=== PATIENT | male | born 1980 | race Caucasian/White ===

== ENCOUNTER 2017-02-04 19:37 | Emergency (ER) | payer OTHER ==
--- NOTE | ~2017-02-04 | CR127 ---
[facility] A Service of [facility] & [facility] RADIOLOGY TEXT RESULTS PATIENT: COLLEEN DOUGLASS LOCATION: SED : 78 UNIT #: [id number] AGE: [address]: MAUREEN BANUELOS SEX: M ORDER DR: [id number] [place] [id number] E MR#: [id number] Acc #: [id number] NAME: COLLEEN DOUGLASS : 1980 SEX: M STUDY DATE/TIME: 02/04/2017 20:22 UNIT: SED ROOM: STUDY DESCRIPTION: CR Foot Complete Min 3 View Rt Attending Physician: Maureen Banuelos Aprn Ordering Physician: Maureen Banuelos Aprn Primary Care Physician: No Primary Care Physician MEDICAL IMAGING REPORT This report is preliminary unless electronic signature is present. EXAM Right foot 02/04/2017 HISTORY Right foot pain beginning this morning. No known injury. COMPARISON STUDIES None. FINDINGS 3 views right foot demonstrates no acute fracture or dislocation. No joint effusion. Soft tissues are unremarkable. IMPRESSION Unremarkable right foot Dictated by... Nguyễn Garner M.D. THIS IS AN ELECTRONICALLY VERIFIED REPORT Nguyễn Garner M.D. at 02/08/2017 7:48 AM LUIS/harsh TD: 02/05/2017 01:46 JOB #: [id number] MEDICAL IMAGING REPORT Page 1 of 1
== END 2017-02-04 21:44 | disposition home or self-care (01) ==
LOC: SED 19:37
DX: S96.911A Strain of unspecified muscle and tendon at ankle and foot level, right foot, initial encounter (principal); F17.210 Nicotine dependence, cigarettes, uncomplicated; X58.XXXA Exposure to other specified factors, initial encounter
CPT/HCPCS: 29540; 73630; 99283